=== PATIENT | female | born 1965 | race Caucasian/White ===

== ENCOUNTER → 2019-08-07 | Emergency (ER) | payer SELFPAY | PROVIDERS: Emergency Provider Emergency Medicine; Family Provider Nurse Practitioner; Visit Provider Emergency Medicine | DX: G89.18 Other acute postprocedural pain (principal); M25.531 Pain in right wrist; F17.210 Nicotine dependence, cigarettes, uncomplicated; J44.9 Chronic obstructive pulmonary disease, unspecified | CPT/HCPCS: 73110; 99281 ==

== ENCOUNTER → 2019-08-15 13:33 | Outpatient (BNVA) | payer MEDICAID, SELFPAY | PROVIDERS: Family Provider Nurse Practitioner; PCP Orthopaedic Surgery; Visit Provider Orthopaedic Surgery | DX: Z98.890 Other specified postprocedural states (principal) ==

== ENCOUNTER 2019-08-15 16:26 | Outpatient (CLI) | payer MEDICAID, SELFPAY | END 2019-08-15 16:27 | disposition home or self-care (01) | LOC: SPT 16:26 | PROVIDERS: Family Provider Nurse Practitioner; PCP Orthopaedic Surgery; Visit Provider Orthopaedic Surgery | DX: Z46.89 Encounter for fitting and adjustment of other specified devices (principal); S52.571D Other intraarticular fracture of lower end of right radius, subsequent encounter for closed fracture with routine healing; X58.XXXD Exposure to other specified factors, subsequent encounter | CPT/HCPCS: 73110; L3908 ==

== ENCOUNTER → 2019-10-23 09:27 | Outpatient (BNVA) | payer MEDICAID, SELFPAY | PROVIDERS: Family Provider Nurse Practitioner; PCP Orthopaedic Surgery; Visit Provider Nurse Practitioner | DX: F43.12 Post-traumatic stress disorder, chronic (principal); F33.1 Major depressive disorder, recurrent, moderate; Z63.4 Disappearance and death of family member; F41.1 Generalized anxiety disorder | CPT/HCPCS: 99214 ==

== ENCOUNTER → 2020-01-17 07:39 | Outpatient (BNVA) | payer MEDICAID, SELFPAY | PROVIDERS: Family Provider Nurse Practitioner; PCP Orthopaedic Surgery; Visit Provider Nurse Practitioner | DX: F43.12 Post-traumatic stress disorder, chronic (principal); F33.1 Major depressive disorder, recurrent, moderate; G47.00 Insomnia, unspecified | CPT/HCPCS: 99213 ==

== ENCOUNTER → 2020-04-17 07:52 | Outpatient (BNVA) | payer MEDICAID, SELFPAY | PROVIDERS: Family Provider Nurse Practitioner; PCP Orthopaedic Surgery; Visit Provider Nurse Practitioner | DX: F33.1 Major depressive disorder, recurrent, moderate (principal); F43.12 Post-traumatic stress disorder, chronic | CPT/HCPCS: 99213 ==

== ENCOUNTER → 2020-07-10 08:14 | Outpatient (BNVA) | payer MEDICAID, SELFPAY | PROVIDERS: Family Provider Nurse Practitioner; Visit Provider Nurse Practitioner | DX: F33.1 Major depressive disorder, recurrent, moderate (principal); F43.12 Post-traumatic stress disorder, chronic | CPT/HCPCS: 99213 ==

== ENCOUNTER → 2020-08-13 16:00 | Outpatient (BNVA) | payer MEDICAID, SELFPAY | PROVIDERS: Family Provider Nurse Practitioner; Visit Provider Orthopaedic Surgery | DX: S52.501A Unspecified fracture of the lower end of right radius, initial encounter for closed fracture (principal); Z98.890 Other specified postprocedural states; M25.531 Pain in right wrist; X58.XXXA Exposure to other specified factors, initial encounter | CPT/HCPCS: 73110 ==

== ENCOUNTER → 2020-09-29 14:31 | Outpatient (BNVA) | payer MEDICAID, SELFPAY | PROVIDERS: PCP Nurse Practitioner; Visit Provider Nurse Practitioner | DX: J45.909 Unspecified asthma, uncomplicated (principal); J02.9 Acute pharyngitis, unspecified; R05 Cough; J06.9 Acute upper respiratory infection, unspecified | CPT/HCPCS: 85025; 87071; 87400; 87635; 87880 ==

== ENCOUNTER → 2020-10-08 07:34 | Outpatient (BNVA) | payer MEDICAID, SELFPAY | PROVIDERS: PCP Nurse Practitioner; Visit Provider Nurse Practitioner | DX: F33.1 Major depressive disorder, recurrent, moderate (principal); F43.12 Post-traumatic stress disorder, chronic | CPT/HCPCS: 99214 ==

== ENCOUNTER → 2020-11-05 16:03 | Outpatient (BNVA) | payer MEDICAID, SELFPAY | PROVIDERS: PCP Nurse Practitioner; Visit Provider Specialist | DX: M25.531 Pain in right wrist; T84.84XA Pain due to internal orthopedic prosthetic devices, implants and grafts, initial encounter | CPT/HCPCS: 73110 ==

== ENCOUNTER → 2020-11-19 07:48 | Outpatient (BNVA) | payer MEDICAID, SELFPAY | PROVIDERS: PCP Nurse Practitioner; Visit Provider Nurse Practitioner | DX: F33.1 Major depressive disorder, recurrent, moderate (principal); F43.12 Post-traumatic stress disorder, chronic | CPT/HCPCS: 99214 ==

== ENCOUNTER → 2021-02-12 07:28 | Outpatient (BNVA) | payer MEDICAID, SELFPAY | PROVIDERS: PCP Nurse Practitioner; Visit Provider Nurse Practitioner | DX: F33.1 Major depressive disorder, recurrent, moderate (principal); F43.12 Post-traumatic stress disorder, chronic | CPT/HCPCS: 99214 ==

== ENCOUNTER → 2021-05-18 06:57 | Outpatient (BNVA) | payer MEDICAID, SELFPAY | PROVIDERS: PCP Nurse Practitioner; Visit Provider Nurse Practitioner | DX: F33.1 Major depressive disorder, recurrent, moderate (principal); F43.12 Post-traumatic stress disorder, chronic | CPT/HCPCS: 99214 ==

== ENCOUNTER → 2021-08-12 07:42 | Outpatient (BNVA) | payer MEDICAID, SELFPAY | PROVIDERS: PCP Nurse Practitioner; Visit Provider Nurse Practitioner | DX: F33.1 Major depressive disorder, recurrent, moderate (principal); F43.12 Post-traumatic stress disorder, chronic | CPT/HCPCS: 99214 ==

== ENCOUNTER → 2021-11-06 09:42 | Outpatient (BNVA) | payer MEDICAID, SELFPAY | PROVIDERS: PCP Nurse Practitioner; Visit Provider Nurse Practitioner | DX: F33.1 Major depressive disorder, recurrent, moderate (principal); F43.12 Post-traumatic stress disorder, chronic | CPT/HCPCS: 99214 ==

== ENCOUNTER 2022-06-27 09:52 | Emergency (ER) | payer MEDICAID, SELFPAY ==
[2022-06-27 09:53] VITALS: BP 154/98; PULSE 121; RESP 17; O2SAT 95; BMI 26.6
[2022-06-27 10:08] VITALS: BP 161/106; PULSE 121; RESP 18; O2SAT 95
[2022-06-27 10:16] LABS: Add Urine Microscopic? NO; Charge for UA Resulting for Rev
--- NOTE | 2022-06-27 10:20 | W.ED.SEIZURE ---
HPI - Seizure General: Chief Complaint: Seizure Stated Complaint: SEIZURES Time Seen by Provider: 06/27/22 09:53 History of Present Illness: HPI Narrative: 57-year-old female with a witnessed seizure patient has a suppose it underlying seizure disorder that she takes clonazepam for. Patient takes 1 mg 3 times daily. She has been out of her clonazepam for couple days. Patient's daughter reports that she had a witnessed seizure for 5 minutes. There is no bowel or bladder loss or no tongue biting. EMS reports when they arrived she appeared postictal but has resolved in route. Patient with no reports of recent illnesses or other complaints. Seizure History: Yes Place: Home Associated symptoms: Deny chest pain, chills or fever(s) Review of Systems Const: Denies: fever(s) or chills Eyes: Denies: blurry vision or eye discharge Card: Denies: chest pain or palpitations Resp: Denies: dyspnea or productive cough GI: Denies: abdominal pain, nausea or vomiting : Denies: difficulty voiding or urinary frequency Musc: Denies: neck pain or back pain Skin/Breast: Denies: rash or erythema Neuro: Reports: seizure-like activity Psych: Reports: anxiety [facility] ED PFSH: Medical History (Updated 06/27/22 @ 11:49 by Rojas Granados DO) Asthma Degenerative cervical disc Disappearance and of family member Major depressive disorder, recurrent, moderate Post-traumatic stress disorder, chronic Psychiatric care Surgical History History of tonsillectomy Status post open reduction and internal fixation (ORIF) of fracture open reduction internal fixation a four-part intra-articular fracture comminuted right distal radius fracture with volar plate and screws and percutaneous pins DOS: 07-07-[address] Shook Family History Other Diabetes Hypertension Stroke Denies family history of Dementia Cancer Social History Smoking and tobacco status: current every day smoker cigarettes Second hand smoke exposure: No Smoking risk assessment/counseling performed?: Yes Tobacco counseling given: counseling >3 minutes Alcohol intake: never Desire information about alcohol rehabilitation?: No Counseling given: No Desire information about substance/drug rehabilitation?: No Counseling given: No Adopted: No Caregiver/support person: No Lives independently: Yes Household members: none Housing: House Marital status: / Number of children: 2 service: No Current occupational status: disabled History of recent travel: No Current gender identity: Female Physical Exam Const: COMMON NORMALS: no acute distress, patient oriented x3 and alert HENMT: COMMON NORMALS: normocephalic, hearing grossly normal bilaterally and moist oral mucous membranes HEAD & SCALP: normocephalic Eye: COMMON NORMALS: EOMs intact bilaterally and conjunctivae normal CONJUNCTIVA: Yes conjunctivae normal Resp: COMMON NORMALS: normal respiratory effort, No retractions, No use of accessory muscles and clear to auscultation bilaterally AUSCULTATION: clear to auscultation bilaterally Cardio: COMMON NORMALS: regular rate and regular rhythm RATE: regular rate RHYTHM: regular rhythm GI: COMMON NORMALS: Soft to palpation and non-tender PALPATION: Yes Soft to palpation Extremity: COMMON NORMALS: full ROM and capillary refill normal Neuro: COMMON NORMALS: patient oriented x3, CN's II-XII intact bilaterally, moves all extremities, no focal motor deficits and no sensory deficits noted SENSORIUM/ORIENTATION: Yes alert Psych: COMMON NORMALS: mental status grossly normal, normal affect and speech normal SPEECH: Yes normal speech Skin: COMMON NORMALS: no rashes or lesions noted and turgor normal GENERAL SKIN EXAM: no rashes or lesions noted and turgor normal Course Vital Signs: Vital signs: Vital Signs Pulse Rate 99 06/27/22 12:02 Respiratory Rate 18 06/27/22 10:08 Blood Pressure 144/96 06/27/22 12:02 Pulse Oximetry 97 06/27/22 12:02 Oxygen Delivery Me thod 06/27/22 11:49 MDM - Seizure MDM Narrative Medical decision making narrative: Patient's symptoms are consistent with likely benzo withdrawal seizure. Patient to be given a Klonopin here in the ER prior to discharge. Recommend she fill her Klonopin prescription tomorrow and follows up with her primary care provider and behavioral health provider as needed. Patient stable and discharged home Lab Data 06/27/22 10:51 06/27/22 10:51 Labs: Laboratory Results WBC 11.1 10^3/uL (4.0-10.0) H 06/27/22 10:51 Corrected WBC Cancelled 06/27/22 10:15 RBC 4.32 10^6/uL (4.1-5.3) 06/27/22 10:51 Hgb 14.8 g/dL (11.5-15.3) 06/27/22 10:51 Hct 43.8 % (37.0-47.0) 06/27/22 10:51 MCV 101.4 fl (81-99) H 06/27/22 10:51 MCH 34.3 pg (28.0-34.0) H 06/27/22 10:51 MCHC 33.8 g/dL (30.0-36.0) 06/27/22 10:51 RDW 13.1 % (12.1-15.1) 06/27/22 10:51 Plt Count 334 10^3/cmm (130-400) 06/27/22 10:51 MPV 9.9 fL (7.4-10.4) 06/27/22 10:51 Gran % Cancelled 06/27/22 10:15 Neut % (Auto) 61.3 % 06/27/22 10:51 Lymph % (Auto) 30.0 % 06/27/22 10:51 [place] % (Auto) 5.0 % 06/27/22 10:51 Eos % (Auto) 2.6 % 06/27/22 10:51 Baso % (Auto) 0.6 % 06/27/22 10:51 Neut # (Auto) 6.81 10^3/uL (1.8-7.7) 06/27/22 10:51 Lymph # (Auto) 3.3 10^3/uL (0.8-4.8) 06/27/22 10:51 [place] # (Auto) 0.6 10^3/uL (0.2-0.9) 06/27/22 10:51 Eos # (Auto) 0.3 10^3/uL (0.0-0.8) 06/27/22 10:51 Baso # (Auto) 0.1 10^3/uL (0.0-0.1) 06/27/22 10:51 Absolute Gran (auto) Cancelled 06/27/22 10:15 Nucleated RBC % (auto) 0 % 06/27/22 10:51 Nucleated RBCs # 0.0 /100WBC 06/27/22 10:51 Sodium 138 mmol/L (136-145) 06/27/22 10:51 Potassium 3.7 mmol/L (3.5-5.1) 06/27/22 10:51 Chloride 102 mmol/L (98-107) 06/27/22 10:51 Carbon Dioxide 22 mmol/L (22-29) 06/27/22 10:51 Anion Gap 17.7 (5-19) 06/27/22 10:51 BUN 13 mg/dL (6-20) 06/27/22 10:51 Creatinine 0.6 mg/dL (0.5-0.9) 06/27/22 10:51 GFR Calculation 103.0 mL/min (90-130) 06/27/22 10:51 Glucose 113 mg/dL (65-115) 06/27/22 10:51 Calculated Osmolality 287 mOsm/kg (285-295) 06/27/22 10:51 Calcium 9.2 mg/dL (8.5-10.5) 06/27/22 10:51 Magnesium 2.2 mg/dL (1.7-2.3) 06/27/22 10:51 Total Bilirubin 0.2 mg/dL (0.15-1.2) 06/27/22 10:51 AST 13 U/L (0-32) 06/27/22 10:51 ALT 11 U/L (0-33) 06/27/22 10:51 Alkaline Phosphatase 86 U/L (35-105) 06/27/22 10:51 Total Protein 7.3 g/dL (6.6-8.7) 06/27/22 10:51 Albumin 4.5 g/dL (3.5-5.2) 06/27/22 10:51 Globulin 2.8 g/dL (1.3-4.6) 06/27/22 10:51 Urine Color Yellow (Yellow) 06/27/22 10:05 Urine Appearance Clear (CLEAR) 06/27/22 10:05 Urine pH 5 (5-7) 06/27/22 10:05 Ur Specific [place] 1.020 (1.005-1.030) 06/27/22 10:05 Urine Protein Neg (Negative) 06/27/22 10:05 Urine Glucose (UA) Norm (Normal) 06/27/22 10:05 Urine Ketones Negative (Negative) 06/27/22 10:05 Urine Blood Neg (Negative) 06/27/22 10:05 Urine Nitrate Negative (Negative) 06/27/22 10:05 Urine Bilirubin Neg (Negative) 06/27/22 10:05 Urine Urobilinogen Norm mg/dL (Negative) 06/27/22 10:05 Ur Leukocyte Esterase Negative (Negative) 06/27/22 10:05 Urine Opiates Screen Negative ng/mL (Negative) 06/27/22 10:05 Ur Barbiturates Screen Negative ng/mL (Negative) 06/27/22 10:05 Ur Phencyclidine Scrn Negative ng/mL (Negative) 06/27/22 10:05 Ur Amphetamines Screen Negative ng/mL (Negative) 06/27/22 10:05 U Benzodiazepines Scrn Positive ng/mL (Negative) H 06/27/22 10:05 Urine Cocaine Screen Negative ng/mL (Negative) 06/27/22 10:05 U Marijuana (THC) Screen Negative ng/mL (Negative) 06/27/22 10:05 Ethyl Alcohol < 10 mg/dL (0-10) 06/27/22 10:51 Discharge Plan Discharge Patient Disposition: Home Clinical Impression: Benzodiazepine withdrawal Condition: Stable Prescriptions: No Action Dulera 100-5 mcg/actuation HFA aerosol inhaler 2 puff INHALATION BID Qty: 13 5RF azithromycin 250 mg tablet See Rx Instructions PO .COMPLEX Qty: 6 0RF Rx Instructions: take 500 mg today (day 1), then 250 mg for 4 days (days 2-5) PO erythromycin 5 mg/gram (0.5 %) ointment 0.5 inch ophthalmic (eye) QID 5 Days Qty: 3.5 0RF prednisone 20 mg tablet 20 mg PO DAILY 5 Days Qty: 5 0RF clonazepam [Klonopin] 1 mg tablet 1 mg PO TID PRN (Reason: anxiety) Qty: 90 1RF aripiprazole [Abilify] 2 mg tablet 2 mg PO DAILY Qty: 30 1RF sertraline [Zoloft] 100 mg tablet 200 mg PO Q24H Qty: 60 1RF Discharge Orders: Discharge ED (Routine); Ordered 06/27/22 Ordered By: Rojas Granados Referrals: Jacob Briggs, [employer] CONS[facility]ANT[facility] [Primary Care Provider] - Discharge Diet: Usual diet Discharge Activity: Resume usual activity Patient Instructions: Opioid Safety, Pain Management, Seizures Activity Restrictions/Additional Instructions: Please fill your Klonopin prescription tomorrow. Follow-up with your primary care provider as needed if symptoms continue Coding Level of Care Code ED [place] for Chg Fwd Exam Comprehensive
[2022-06-27 10:24] LABS: Bilirubin Urine Neg (Negative); Blood Urine Neg (Negative); Glucose Urine UA Norm (Normal); Ketones Urine Negative (Negative); Leukocyte Esterase Urine Negative (Negative); Nitrate Urine Negative (Negative); Protein Urine Neg (Negative); Urine Appearance Clear (CLEAR); Urine Color Yellow (Yellow); Urobilinogen Urine Norm (Negative); pH Urine 5 (5-7)
[2022-06-27 10:32] LABS: Amphetamines Screen Urine Negative (Negative); Barbiturates Screen Urine Negative (Negative); Benzodiazepines Screen Urine Positive (Negative); Cocaine Screen Urine Negative (Negative); Opiate Screen Urine Negative (Negative); PCP Screen Urine Negative (Negative); THC Screen Urine Negative (Negative)
[2022-06-27 10:56] LABS: Basophils # 0.1 10^3/uL (0.0-0.1); Basophils % 0.6 %; Eosinophils # 0.3 10^3/uL (0.0-0.8); Eosinophils % 2.6 %; Hematocrit 43.8 % (37.0-47.0); Hemoglobin 14.8 g/dL (11.5-15.3); Lymphocytes # 3.3 10^3/uL (0.8-4.8); Mean Corpuscular HGB Conc 33.8 g/dL (30.0-36.0); Mean Corpuscular Hemoglobin 34.3 pg (28.0-34.0); Mean Corpuscular Volume 101.4 fl (81-99); Mean Platelet Volume 9.9 fL (7.4-10.4); Monocytes # 0.6 10^3/uL (0.2-0.9); Neutrophils # 6.81 10^3/uL (1.8-7.7); Neutrophils % 61.3 %; Nucleated Red Blood Cells % 0 %; Platelet Count 334 10^3/cmm (130-400); Red Blood Count 4.32 10^6/uL (4.1-5.3); Red Cell Distribution Width 13.1 % (12.1-15.1); White Blood Count 11.1 10^3/uL (4.0-10.0)
[2022-06-27 11:14] LABS: Alanine Aminotransferase 11 U/L (0-33); Albumin Level 4.5 g/dL (3.5-5.2); Alkaline Phosphatase 86 U/L (35-105); Anion Gap 17.7 (5-19); Aspartate Amino Transferase 13 U/L (0-32); Blood Urea Nitrogen 13 mg/dL (6-20); Calcium 9.2 mg/dL (8.5-10.5); Carbon Dioxide 22 mmol/L (22-29); Chloride 102 mmol/L (98-107); Globulin 2.8 g/dL (1.3-4.6); Glucose 113 mg/dL (65-115); Magnesium 2.2 mg/dL (1.7-2.3); Osmolality Calculated 287 mOsm/kg (285-295); Potassium 3.7 mmol/L (3.5-5.1); Sodium 138 mmol/L (136-145); Total Bilirubin 0.2 mg/dL (0.15-1.2); Total Protein 7.3 g/dL (6.6-8.7)
[2022-06-27 11:35] LABS: Alcohol Level < 10 mg/dL (0-10)
[2022-06-27] MEDS: CLONazepam 1 mg Tablet PO (11:48)
[2022-06-27 11:49] VITALS: BP 144/96; PULSE 97; O2SAT 97
[2022-06-27 12:02] VITALS: BP 144/96; PULSE 99; O2SAT 97
== END 2022-06-27 12:00 | disposition home or self-care (01) ==
PROVIDERS: Emergency Provider Student in an Organized Health Care Education/Training Program; PCP Nurse Practitioner
DX: F13.239 Sedative, hypnotic or anxiolytic dependence with withdrawal, unspecified (principal); F17.210 Nicotine dependence, cigarettes, uncomplicated
CPT/HCPCS: 36415; 80053; 80306; 80307; 81003; 83735; 85025; 99283

== ENCOUNTER 2022-10-14 18:33 | Emergency (ER) | payer MEDICAID, SELFPAY ==
[2022-10-14 18:34] VITALS: BP 137/93; PULSE 118; RESP 19; O2SAT 96; BMI 28.1
--- NOTE | 2022-10-14 18:44 | CTR_ITS ---
PROCEDURE INFORMATION: Exam: CT Cervical Spine Without Contrast Exam date and time: 10/14/2022 7:41 PM Age: 57 years old Clinical indication: Injury or trauma; Fall; Blunt trauma TECHNIQUE: Imaging protocol: Computed tomography of the cervical spine without contrast. Radiation optimization: All CT scans at this facility use at least one of these dose optimization techniques: automated exposure control; mA and/or kV adjustment per patient size (includes targeted exams where dose is matched to clinical indication); or iterative reconstruction. REPORTING DATA: Count of CT and Cardiac NM exams in prior 12 months: This patient has received [address] and 0 known cardiac nuclear medicine studies in the 12 months prior to the current study. COMPARISON: No relevant prior studies available. RADIATION DOSE METRICS: Total DLP (mGy-cm): 213.1 FINDINGS: Bones/joints: No acute fracture. Grade 1 anterolisthesis of C5-C6. No severe spinal canal stenosis. Lungs: Lung apices are normal. Soft tissues: Unremarkable. CT/CT cervical spin wo con* [id number] IMPRESSION: No acute findings.
--- NOTE | 2022-10-14 18:44 | CTR_ITS ---
PROCEDURE INFORMATION: Exam: CT Head Without Contrast Exam date and time: 10/14/2022 7:41 PM Age: 57 years old Clinical indication: Injury or trauma; Fall; Blunt trauma (contusions or hematomas); Additional info: Fall seizure TECHNIQUE: Imaging protocol: Computed tomography of the head without contrast. Radiation optimization: All CT scans at this facility use at least one of these dose optimization techniques: automated exposure control; mA and/or kV adjustment per patient size (includes targeted exams where dose is matched to clinical indication); or iterative reconstruction. REPORTING DATA: Count of CT and Cardiac NM exams in prior 12 months: This patient has received [address] and 0 known cardiac nuclear medicine studies in the 12 months prior to the current study. COMPARISON: No relevant prior studies available. RADIATION DOSE METRICS: Total DLP (mGy-cm): 1154.08 FINDINGS: Brain: Normal. No hemorrhage. Unremarkable white matter. No mass effect. Cerebral ventricles: No ventriculomegaly. Paranasal sinuses: Visualized sinuses are unremarkable. No fluid levels. Mastoid air cells: Visualized mastoid air cells are well aerated. Bones/joints: Unremarkable. No acute fracture. Soft tissues: Unremarkable. CT/CT head wo con* [id number] IMPRESSION: No acute intracranial abnormality.
--- NOTE | 2022-10-14 18:49 | ED_ITS ---
HPI - Seizure General: Chief Complaint: Seizure Stated Complaint: SEIZURES Time Seen by Provider: 10/14/22 18:41 Source: patient and EMS Mode of arrival: EMS Limitations: no limitations History of Present Illness: HPI Narrative: 57-year-old female who states she is on Klonopin chronically states she had ran out 2 days ago because she did not get a refill she states she has had seizures before and she ran out she had a seizure roughly an hour ago states she did hit her head has mild head and neck pain she is now awake and alert at her baseline denies any fever or vomiting. Seizure History: Yes Associated symptoms: Deny chest pain, chills or fever(s) Review of Systems Const: Denies: fever(s), chills, body aches or change in appetite Eyes: Denies: blurry vision or eye discomfort ENMT: Denies: throat pain or dental pain Card: Denies: chest pain Resp: Denies: dyspnea GI: Denies: abdominal pain, nausea, vomiting or diarrhea : Denies: dysuria Musc: Reports: neck pain Skin/Breast: Denies: rash Neuro: Reports: seizure-like activity Psych: Denies: depression [place]/Lymph: Denies: easy bruising All/Imm: Denies: urticaria PFSH ED PFSH: Medical History Asthma Degenerative cervical disc Disappearance and of family member Major depressive disorder, recurrent, moderate Post-traumatic stress disorder, chronic Psychiatric care Tobacco use disorder Surgical History History of tonsillectomy Status post open reduction and internal fixation (ORIF) of fracture open reduction internal fixation a four-part intra-articular fracture comminuted right distal radius fracture with volar plate and screws and percutaneous pins DOS: 07-07-[address] Shook Family History Other Diabetes Hypertension Stroke Denies family history of Dementia Cancer Social History Smoking and tobacco status: current every day smoker cigarettes Second hand smoke exposure: No Smoking risk assessment/counseling performed?: Yes Tobacco counseling given: counseling >3 minutes Alcohol intake: never Desire information about alcohol rehabilitation?: No Counseling given: No Desire information about substance/drug rehabilitation?: No Counseling given: No Adopted: No Caregiver/support person: No Lives independently: Yes Household members: none Housing: House Marital status: / Number of children: 2 service: No Current occupational status: disabled Current gender identity: Female Physical Exam Const: COMMON NORMALS: no acute distress, patient oriented x3 and healthy appearing HENMT: COMMON NORMALS: normocephalic and atraumatic HEAD & SCALP: normocephalic and atraumatic Eye: COMMON NORMALS: Equal, round and reactive pupils present and EOMs intact bilaterally PUPIL: Yes Equal, round and reactive pupils present Neck/C-Spine: COMMON NORMALS: full ROM and supple Chest: COMMONS NORMALS: normal inspection of the chest and normal palpation of entire chest wall Resp: COMMON NORMALS: normal respiratory effort, No retractions, No use of accessory muscles and clear to auscultation bilaterally AUSCULTATION: clear to auscultation bilaterally Cardio: COMMON NORMALS: regular rate, regular rhythm and No murmurs present (Cardio) RATE: regular rate RHYTHM: regular rhythm GI: COMMON NORMALS: Normal to inspection, nondistended, normoactive bowel sounds present, Soft to palpation, non-tender and no masses PALPATION: Yes Soft to palpation Extremity: COMMON NORMALS: normal to inspection and full ROM Neuro: COMMON NORMALS: patient oriented x3, moves all extremities and no focal motor deficits Psych: COMMON NORMALS: mental status grossly normal, Normal thought process present and cooperative THOUGHT PROCESS: Normal thought process present Skin: COMMON NORMALS: no rashes or lesions noted and no wounds GENERAL SKIN EXAM: no rashes or lesions noted Course Vital Signs: Vital signs: Vital Signs Pulse Rate 105 H 10/14/22 20:04 Respiratory Rate 16 10/14/22 20:04 Blood Pressure 136/80 10/14/22 20:04 Pulse Oximetry 98 10/14/22 20:04 Oxygen Delivery Me thod 10/14/22 20:04 MDM - Seizure MDM Narrative Medical decision making narrative: Patient presents here with a seizure likely withdrawal seizure from her Klonopin her heart rate now is 90 she feels improved I did give her 1 dose I will give her 4-day course of her Klonopin but informed her she needs to call her PCP for her refill she is stable for discharge she is to follow-up with PCP and return if worsening Lab Data 10/14/22 19:04 10/14/22 19:04 Labs: Radiology Impressions Cervical Spine CT 10/14/22 18:44 IMPRESSION: No acute findings. Head CT 10/14/22 18:44 IMPRESSION: No acute intracranial abnormality. Laboratory Results WBC 9.2 10^3/uL (4.0-10.0) 10/14/22 19:04 RBC 4.69 10^6/uL (4.1-5.3) 10/14/22 19:04 Hgb 15.5 g/dL (11.5-15.3) H 10/14/22 19:04 Hct 45.2 % (37.0-47.0) 10/14/22 19:04 MCV 96.4 fl (81-99) 10/14/22 19:04 MCH 33.0 pg (28.0-34.0) 10/14/22 19:04 MCHC 34.3 g/dL (30.0-36.0) 10/14/22 19:04 RDW 12.3 % (12.1-15.1) 10/14/22 19:04 Plt Count 295 10^3/cmm (130-400) 10/14/22 19:04 MPV 10.2 fL (7.4-10.4) 10/14/22 19:04 Neut % (Auto) 56.7 % 10/14/22 19:04 Lymph % (Auto) 33.4 % 10/14/22 19:04 [place] % (Auto) 6.0 % 10/14/22 19:04 Eos % (Auto) 2.6 % 10/14/22 19:04 Baso % (Auto) 0.5 % 10/14/22 19:04 Neut # (Auto) 5.22 10^3/uL (1.8-7.7) 10/14/22 19:04 Lymph # (Auto) 3.1 10^3/uL (0.8-4.8) 10/14/22 19:04 [place] # (Auto) 0.6 10^3/uL (0.2-0.9) 10/14/22 19:04 Eos # (Auto) 0.2 10^3/uL (0.0-0.8) 10/14/22 19:04 Baso # (Auto) 0.1 10^3/uL (0.0-0.1) 10/14/22 19:04 Nucleated RBC % (auto) 0 % 10/14/22 19:04 Nucleated RBCs # 0.0 /100WBC 10/14/22 19:04 Sodium 128 mmol/L (136-145) L 10/14/22 19:04 Potassium 3.5 mmol/L (3.5-5.1) 10/14/22 19:04 Chloride 89 mmol/L (98-107) L 10/14/22 19:04 Carbon Dioxide 24 mmol/L (22-29) 10/14/22 19:04 Anion Gap 18.5 (5-19) 10/14/22 19:04 BUN 5 mg/dL (6-20) L 10/14/22 19:04 Creatinine 0.6 mg/dL (0.5-0.9) 10/14/22 19:04 GFR Calculation 103.0 mL/min (90-130) 10/14/22 19:04 Glucose 136 mg/dL (65-115) H 10/14/22 19:04 Calculated Osmolality 265 mOsm/kg (285-295) L 10/14/22 19:04 Calcium 9.3 mg/dL (8.5-10.5) 10/14/22 19:04 Total Bilirubin 0.2 mg/dL (0.15-1.2) 10/14/22 19:04 AST 15 U/L (0-32) 10/14/22 19:04 ALT 12 U/L (0-33) 10/14/22 19:04 Alkaline Phosphatase 91 U/L (35-105) 10/14/22 19:04 Total Protein 7.6 g/dL (6.6-8.7) 10/14/22 19:04 Albumin 4.8 g/dL (3.5-5.2) 10/14/22 19:04 Globulin 2.8 g/dL (1.3-4.6) 10/14/22 19:04 Discharge Plan Discharge Patient Disposition: Home Clinical Impression: Generalized seizure Condition: Stable Prescriptions: New clonazepam [Klonopin] 1 mg tablet 1 mg PO TID Qty: 12 0RF No Action Dulera 100-5 mcg/actuation HFA aerosol inhaler 2 puff INHALATION BID Qty: 13 5RF sertraline [Zoloft] 100 mg tablet 200 mg PO Q24H Qty: 60 1RF clonazepam [Klonopin] 1 mg tablet 1 mg PO TID PRN (Reason: anxiety) Qty: 90 1RF aripiprazole [Abilify] 2 mg tablet 2 mg PO DAILY Qty: 30 1RF Discharge Orders: Discharge ED (Routine); Ordered 10/14/22 Ordered By: Marbella Roblero Referrals: Jacob Briggs, [employer] DIRECTOR-C [Primary Care Provider] - 1-3 days Discharge Diet: Advance as tolerated Discharge Activity: Resume usual activity Patient Instructions: Seizures Coding Level of Care Code ED Quality Process Auditor for Huan Roa
[2022-10-14] MEDS: CLONazepam 1 mg Tablet PO (18:57)
[2022-10-14 18:59] VITALS: BP 136/88; PULSE 110; RESP 16; O2SAT 94
[2022-10-14 19:27] LABS: Basophils # 0.1 10^3/uL (0.0-0.1); Basophils % 0.5 %; Eosinophils # 0.2 10^3/uL (0.0-0.8); Eosinophils % 2.6 %; Hematocrit 45.2 % (37.0-47.0); Hemoglobin 15.5 g/dL (11.5-15.3); Lymphocytes # 3.1 10^3/uL (0.8-4.8); Lymphocytes % 33.4 %; Mean Corpuscular HGB Conc 34.3 g/dL (30.0-36.0); Mean Corpuscular Volume 96.4 fl (81-99); Mean Platelet Volume 10.2 fL (7.4-10.4); Monocytes # 0.6 10^3/uL (0.2-0.9); Neutrophils # 5.22 10^3/uL (1.8-7.7); Neutrophils % 56.7 %; Nucleated Red Blood Cells % 0 %; Platelet Count 295 10^3/cmm (130-400); Red Blood Count 4.69 10^6/uL (4.1-5.3); Red Cell Distribution Width 12.3 % (12.1-15.1); White Blood Count 9.2 10^3/uL (4.0-10.0)
[2022-10-14 19:50] LABS: Alanine Aminotransferase 12 U/L (0-33); Albumin Level 4.8 g/dL (3.5-5.2); Alkaline Phosphatase 91 U/L (35-105); Anion Gap 18.5 (5-19); Aspartate Amino Transferase 15 U/L (0-32); Blood Urea Nitrogen 5 mg/dL (6-20); Calcium 9.3 mg/dL (8.5-10.5); Carbon Dioxide 24 mmol/L (22-29); Chloride 89 mmol/L (98-107); Globulin 2.8 g/dL (1.3-4.6); Glucose 136 mg/dL (65-115); Osmolality Calculated 265 mOsm/kg (285-295); Potassium 3.5 mmol/L (3.5-5.1); Sodium 128 mmol/L (136-145); Total Bilirubin 0.2 mg/dL (0.15-1.2); Total Protein 7.6 g/dL (6.6-8.7)
[2022-10-14 20:04] VITALS: BP 136/80; PULSE 105; RESP 16; O2SAT 98
== END 2022-10-14 20:55 | disposition home or self-care (01) ==
PROVIDERS: Emergency Provider Emergency Medicine; PCP Nurse Practitioner
DX: G40.89 Other seizures (principal); F17.210 Nicotine dependence, cigarettes, uncomplicated
CPT/HCPCS: 36415; 70450; 72125; 80053; 85025; 99284

== ENCOUNTER → 2022-11-29 09:02 | Outpatient (BNVA) | payer MEDICAID, SELFPAY | PROVIDERS: PCP Nurse Practitioner; Visit Provider Nurse Practitioner | DX: Z79.899 Other long term (current) drug therapy (principal) | CPT/HCPCS: 80061; 80306; 83036 ==

== ENCOUNTER 2023-05-07 06:18 | Emergency (ER) | payer MEDICAID, SELFPAY ==
[2023-05-07 06:18] VITALS: BMI 24.9
--- NOTE | 2023-05-07 06:23 | ED_ITS ---
HPI - Seizure General: Chief Complaint: Seizure Stated Complaint: post seizure Time Seen by Provider: 05/07/23 06:20 Source: patient Mode of arrival: ambulatory History of Present Illness: HPI Narrative: 57-year-old female presents after a seizure via EMS. Patient was at home in bed her was with her he awoke and reports she was having tonic-clonic seizures. He has a little difficult time putting a timeframe to his far as how long she was seizing but he can relate that it was rhythmic movements of both arms and legs. She has had seizures in the past she was in the ER in October of this year for a seizure. States the only seizure medicine she has ever been on is clonazepam. There is 1 previous visit for withdraw from benzodiazepines precipitating his seizure she denies being on any other antiseizure medication at seizure neurologist in the past. She has been known to have seizures for some time. MD complaint: seizure Onset (ago): minute(s) Description of Episode: loss of consciousness and tonic-clonic movement Witnessed: Yes - by Bystander Seizure History: Yes Place: Home Possible Precipitating Event: none Associated symptoms: Reports malaise; Deny chest pain, chills, confusion, cough, diaphoresis, fever(s), anorexia, rash, short of breath, syncope or weakness Treatments prior to arrival: none Review of Systems Const: Reports: fatigue and malaise; Denies: fever(s), chills or diaphoresis ENMT: Denies: throat pain, ear or mastoid pain, nasal discharge or nasal congestion Card: Denies: chest pain, palpitations, irregular heart rhythm or syncope Resp: Denies: dyspnea, productive cough or non-productive cough GI: Denies: abdominal pain, nausea, vomiting, hematemesis, coffee ground emesis, diarrhea, constipation, bloating, hematochezia or melena : Denies: flank pain, difficulty voiding, dysuria, urinary frequency or urinary urgency Musc: Denies: neck pain or back pain Skin/Breast: Denies: rash or pruritus Neuro: Denies: confusion PFSH ED PFSH: Medical History (Updated 05/07/23 @ 07:29 by Caio Decker DO) Asthma Degenerative cervical disc Disappearance and of family member Generalized seizure Major depressive disorder, recurrent, moderate Post-traumatic stress disorder, chronic Psychiatric care Tobacco use disorder Surgical History History of tonsillectomy Status post open reduction and internal fixation (ORIF) of fracture open reduction internal fixation a four-part intra-articular fracture comminuted right distal radius fracture with volar plate and screws and pe rcutaneous pins DOS: 07-07-[address] Shook Family History Other Diabetes Hypertension Stroke Denies family history of Dementia Cancer Social History Smoking and tobacco status: current every day smoker cigarettes Second hand smoke exposure: No Smoking risk assessment/counseling performed?: Yes Tobacco counseling given: counseling >3 minutes Alcohol intake: never Desire information about alcohol rehabilitation?: No Counseling given: No Substance/Drug Use: unknown Desire information about substance/drug rehabilitation?: No Counseling given: No Adopted: No Caregiver/support person: No Lives independently: Yes Household members: none Housing: House Marital status: / Number of children: 2 service: No Current occupational status: disabled Do you think of yourself as: Straight/Heterosexual Current gender identity: Female Physical Exam Const: GENERAL APPEARANCE: cooperative and comfortable ORIENTATI ON/CONSCIOUSNESS: Yes awake, Yes oriented to person, Yes oriented to place and Yes oriented to time HENMT: COMMON NORMALS: normocephalic, atraumatic and hearing grossly normal bilaterally HEAD & SCALP: normocephalic and atraumatic Resp: COMMON NORMALS: normal respiratory effort, No retractions, No use of accessory muscles and clear to auscultation bilaterally AUSCULTATION: clear to auscultation bilaterally Cardio: COMMON NORMALS: regular rate, regular rhythm and No murmurs present (Cardio) RATE: regular rate RHYTHM: regular rhythm GI: COMMON NORMALS: Soft to palpation and No hepatosplenomegaly present AUSCULTATION: Yes normoactive bowel sounds PALPATION: Yes Soft to palpation, No Tenderness to palpation present (GI), No Guarding due to palpation present (GI) and Yes No hepatosplenomegaly present Extremity: COMMON NORMALS: normal to inspection, capillary refill normal, no clubbing, cyanosis or edema, no calf tenderness and no pedal edema Neuro: SENSORIUM/ORIENTATION: Yes oriented to person, Yes oriented to place and Yes oriented to time Skin: COMMON NORMALS: no rashes or lesions noted GENERAL SKIN EXAM: no rashes or lesions noted Course Vital Signs: Vital signs: Vital Signs Temperature 98.7 F 05/07/23 07:36 Pulse Rate 111 H 05/07/23 07:36 Respiratory Rate 16 05/07/23 07:36 Blood Pressure 109/63 05/07/23 07:36 Pulse Oximetry 96 05/07/23 07:36 MDM - Seizure MDM Narrative Medical decision making narrative: Stable. We will discharge patient home with she was given Keppra loading dose here started on 500 twice daily set up outpatient sleep deprived EEG and follow- up with neurology return if has recurrent seizures. Medical Records Attestation: I reviewed the patient's medical records. Lab Data Attestation: I reviewed the patient's lab results. 05/07/23 06:30 05/07/23 06:30 Labs: Laboratory Results WBC 14.10 10^3/uL (3.29-11.43) H 05/07/23 06:30 RBC 4.57 10^6/uL (3.85-5.65) 05/07/23 06:30 Hgb 15.50 g/dL (11.27-16.99) 05/07/23 06:30 Hct 44.9 % (36-47) 05/07/23 06:30 MCV 98.2 fl (85-98) H 05/07/23 06:30 MCH 33.9 pg (27-33) H 05/07/23 06:30 MCHC 34.5 g/dL (30-55) 05/07/23 06:30 RDW 12.4 % (12.1-15.1) 05/07/23 06:30 Plt Count 287 10^3/cmm (157-399) 05/07/23 06:30 MPV 10.2 fL (7.4-10.4) 05/07/23 06:30 Neut % (Auto) 73.3 % 05/07/23 06:30 Lymph % (Auto) 20.1 % 05/07/23 06:30 Thomas % (Auto) 4.3 % 05/07/23 06:30 Eos % (Auto) 1.3 % 05/07/23 06:30 Baso % (Auto) 0.6 % 05/07/23 06:30 Neut # (Auto) 10.34 10^3/uL (1.8-7.7) H 05/07/23 06:30 Lymph # (Auto) 2.8 10^3/uL (0.8-4.8) 05/07/23 06:30 Thomas # (Auto) 0.6 10^3/uL (0.2-0.9) 05/07/23 06:30 Eos # (Auto) 0.2 10^3/uL (0.0-0.8) 05/07/23 06:30 Baso # (Auto) 0.1 10^3/uL (0.0-0.1) 05/07/23 06:30 Nucleated RBC % (auto) 0 % 05/07/23 06:30 Nucleated RBCs # 0.0 /100WBC 05/07/23 06:30 Sodium 138 mmol/L (136-145) 05/07/23 06:30 Potassium 3.2 mmol/L (3.5-5.1) L 05/07/23 06:30 Chloride 100 mmol/L (98-107) 05/07/23 06:30 Carbon Dioxide 24 mmol/L (22-29) 05/07/23 06:30 Anion Gap 17.2 (5-19) 05/07/23 06:30 BUN 6 mg/dL (6-20) 05/07/23 06:30 Creatinine 0.6 mg/dL (0.5-0.9) 05/07/23 06:30 GFR Calculation 103.0 mL/min (90-130) 05/07/23 06:30 Glucose 165 mg/dL (65-115) H 05/07/23 06:30 Calculated Osmolality 287 mOsm/kg (285-295) 05/07/23 06:30 Calcium 9.3 mg/dL (8.5-10.5) 05/07/23 06:30 Magnesium 2.0 mg/dL (1.7-2.3) 05/07/23 06:30 Total Bilirubin 0.2 mg/dL (0.15-1.2) 05/07/23 06:30 AST 13 U/L (0-32) 05/07/23 06:30 ALT 11 U/L (0-33) 05/07/23 06:30 Alkaline Phosphatase 98 U/L (35-105) 05/07/23 06:30 Total Protein 7.5 g/dL (6.6-8.7) 05/07/23 06:30 Albumin 4.8 g/dL (3.5-5.2) 05/07/23 06:30 Globulin 2.7 g/dL (1.3-4.6) 05/07/23 06:30 No radiology studies performed this visit Discharge Plan Discharge Patient Disposition: Home Clinical Impression: Generalized seizure Condition: Stable Prescriptions: New Keppra 500 mg tablet 500 mg PO BID Qty: 60 0RF No Action Dulera 100-5 mcg/actuation HFA aerosol inhaler 2 puff INHALATION BID Qty: 13 5RF clonazepam 1 mg tablet 1 mg PO TID Qty: 90 1RF aripiprazole 2 mg tablet See Rx Instructions .ROUTE .COMPLEX Qty: 30 2RF Dose Instruction: TAKE ONE TABLET BY MOUTH EVERY DAY Rx Instructions: TAKE ONE TABLET BY MOUTH EVERY DAY sertraline 100 mg tablet See Rx Instructions .ROUTE .COMPLEX Qty: 60 2RF Dose Instruction: TAKE TWO TABLETS BY MOUTH EVERY 24 HOURS Rx Instructions: TAKE TWO TABLETS BY MOUTH EVERY 24 HOURS Discharge Orders: Discharge ED (Routine); Ordered 05/07/23 Ordered By: Caio Decker Referrals: Jacob Briggs, [facility] [Nurse Practitioner] - Discharge Diet: Usual diet Discharge Activity: Increase activity as tolerated Patient Instructions: Recurrent Seizures in Adults (ED), Opioid Safety, Pain Management Activity Restrictions/Additional Instructions: Case management will make arrangements for follow-up outpatient EEG and neurology. Coding Level of Care Code ED [employer] Explos[employer] Handler for Huan Roa
[2023-05-07 06:24] VITALS: BP 155/94; PULSE 111; RESP 16; TEMP 37.1; O2SAT 96
[2023-05-07 06:36] LABS: Basophils # 0.1 10^3/uL (0.0-0.1); Basophils % 0.6 %; Eosinophils # 0.2 10^3/uL (0.0-0.8); Eosinophils % 1.3 %; Hematocrit 44.9 % (36-47); Lymphocytes # 2.8 10^3/uL (0.8-4.8); Lymphocytes % 20.1 %; Mean Corpuscular HGB Conc 34.5 g/dL (30-55); Mean Corpuscular Hemoglobin 33.9 pg (27-33); Mean Corpuscular Volume 98.2 fl (85-98); Mean Platelet Volume 10.2 fL (7.4-10.4); Monocytes # 0.6 10^3/uL (0.2-0.9); Monocytes % 4.3 %; Neutrophils # 10.34 10^3/uL (1.8-7.7); Neutrophils % 73.3 %; Nucleated Red Blood Cells % 0 %; Platelet Count 287 10^3/cmm (157-399); Red Blood Count 4.57 10^6/uL (3.85-5.65); Red Cell Distribution Width 12.4 % (12.1-15.1)
[2023-05-07 07:01] LABS: Alanine Aminotransferase 11 U/L (0-33); Albumin Level 4.8 g/dL (3.5-5.2); Alkaline Phosphatase 98 U/L (35-105); Anion Gap 17.2 (5-19); Aspartate Amino Transferase 13 U/L (0-32); Blood Urea Nitrogen 6 mg/dL (6-20); Calcium 9.3 mg/dL (8.5-10.5); Carbon Dioxide 24 mmol/L (22-29); Chloride 100 mmol/L (98-107); Globulin 2.7 g/dL (1.3-4.6); Glucose 165 mg/dL (65-115); Osmolality Calculated 287 mOsm/kg (285-295); Potassium 3.2 mmol/L (3.5-5.1); Sodium 138 mmol/L (136-145); Total Bilirubin 0.2 mg/dL (0.15-1.2); Total Protein 7.5 g/dL (6.6-8.7)
[2023-05-07 07:36] VITALS: BP 109/63; PULSE 111; RESP 16; TEMP 37.1; O2SAT 96
== END 2023-05-07 07:38 | disposition home or self-care (01) ==
PROVIDERS: Emergency Provider Family Medicine
DX: G40.409 Other generalized epilepsy and epileptic syndromes, not intractable, without status epilepticus (principal); F17.210 Nicotine dependence, cigarettes, uncomplicated
CPT/HCPCS: 80053; 83735; 85025; 99284; J1953

== ENCOUNTER → 2023-11-15 11:54 | Outpatient (BNVA) | payer MEDICAID, SELFPAY ==
[2023-08-02 15:57] VITALS: BP 109/63; BMI 24.9
== END ==
PROVIDERS: PCP Family Medicine; Visit Provider Nurse Practitioner
DX: Z79.899 Other long term (current) drug therapy (principal); F43.12 Post-traumatic stress disorder, chronic; F33.1 Major depressive disorder, recurrent, moderate; F17.200 Nicotine dependence, unspecified, uncomplicated
CPT/HCPCS: 80061; 83036

== ENCOUNTER → 2024-08-13 14:23 | Outpatient (BNVA) | payer MEDICAID, SELFPAY ==
[2024-08-10 13:57] VITALS: BP 128/78; BMI 26.9
== END ==
PROVIDERS: PCP Nurse Practitioner Family; Visit Provider Nurse Practitioner Family
DX: M25.512 Pain in left shoulder (principal); M85.812 Other specified disorders of bone density and structure, left shoulder
CPT/HCPCS: 73030

== ENCOUNTER 2024-08-29 11:58 | Outpatient (CLI) | payer MEDICAID, SELFPAY ==
[2024-08-10 13:57] VITALS: BP 128/78; BMI 26.9
--- NOTE | 2024-08-29 12:01 | MR_ITS ---
WS: [id number] MRI LEFT SHOULDER NONCONTRAST TECHNIQUE: Sagittal T2, coronal T1, T2 and proton density imaging. Axial gradient PDE imaging. CLINICAL INFORMATION: M25.512 - Pain in left shoulder COMPARISON: None. FINDINGS: Advanced degenerative arthritis AC joint. Subacromial subdeltoid fluid. Mild downsloping acromion. Gu bacromial spurring. Impingement distal supraspinatus. High-grade tear of the distal supraspinatus joy r the insertion with tendon retraction measuring approximately 1.5 cm. Chronic thinning of the supras pinatus and infraspinatus. Normal teres minor. Tendinopathy with partial intrasubstance tear intra-ar ticular biceps tendon. Subscapularis tendon appears intact. Biceps tendon appears intact within the b icipital groove. Moderate to advanced degenerative narrowing at the glenohumeral articulation with hypertrophic spurri ng. Small joint effusion. Subchondral cystic change involving the glenoid. Degenerative fraying of th e glenoid labrum. MR/MR shoulder LT wo con* [id number] IMPRESSION: 1. Advanced arthritis AC joint with subacromial subdeltoid fluid. Subacromial spurring impinges the distal supraspinatus. 2. High-grade tear of the distal supraspinatus with retraction measuring 1.5 c m. Chronic thinning of the supraspinatus. 3. Tendinopathy with partial intrasubstance tear intra-articular biceps tendon . 4. Advanced degenerative narrowing glenohumeral articulation.
== END 2024-08-29 11:59 | disposition home or self-care (01) ==
LOC: RAD 11:59
PROVIDERS: PCP Nurse Practitioner Family; Visit Provider Nurse Practitioner Family
DX: M13.812 Other specified arthritis, left shoulder (principal); R93.6 Abnormal findings on diagnostic imaging of limbs; M75.102 Unspecified rotator cuff tear or rupture of left shoulder, not specified as traumatic
CPT/HCPCS: 73221

== ENCOUNTER → 2024-09-10 14:45 | Outpatient (BNVA) | payer MEDICAID, SELFPAY ==
[2024-08-10 13:57] VITALS: BP 128/78; BMI 26.9
== END ==
PROVIDERS: PCP Nurse Practitioner Family; Visit Provider Nurse Practitioner
DX: M19.012 Primary osteoarthritis, left shoulder (principal); M25.612 Stiffness of left shoulder, not elsewhere classified; M75.102 Unspecified rotator cuff tear or rupture of left shoulder, not specified as traumatic; M25.812 Other specified joint disorders, left shoulder; M67.922 Unspecified disorder of synovium and tendon, left upper arm
CPT/HCPCS: 36415; 80053; 81001; 85025; 99204

== ENCOUNTER → 2024-11-13 10:51 | Outpatient (BNVA) | payer SELFPAY ==
[2024-08-10 13:57] VITALS: BP 128/78; BMI 26.9
== END ==
PROVIDERS: PCP Nurse Practitioner Family; Visit Provider Nurse Practitioner
DX: Z79.899 Other long term (current) drug therapy (principal)
CPT/HCPCS: 80061; 83036

== ENCOUNTER → 2024-11-19 11:31 | Outpatient (BNVA) | payer MEDICAID, SELFPAY ==
[2024-11-14 15:15] VITALS: BP 140/89
[2024-11-14 15:16] VITALS: BMI 31.9
== END ==
PROVIDERS: PCP Nurse Practitioner Family; Visit Provider Nurse Practitioner
DX: M75.102 Unspecified rotator cuff tear or rupture of left shoulder, not specified as traumatic (principal); M25.812 Other specified joint disorders, left shoulder; M19.012 Primary osteoarthritis, left shoulder; M67.922 Unspecified disorder of synovium and tendon, left upper arm
CPT/HCPCS: 99214

== ENCOUNTER → 2024-12-14 11:38 | Outpatient (BNVA) | payer MEDICAID, SELFPAY ==
[2024-11-14 15:15] VITALS: BP 140/89
[2024-11-14 15:16] VITALS: BMI 31.9
== END ==
PROVIDERS: PCP Nurse Practitioner Family; Visit Provider Nurse Practitioner
DX: Z01.818 Encounter for other preprocedural examination (principal); M19.012 Primary osteoarthritis, left shoulder
CPT/HCPCS: 36415; 80053; 81001; 85025

== ENCOUNTER 2025-01-01 09:18 | Day surgery (SDC) | payer MEDICAID, SELFPAY ==
[2024-11-14 15:15] VITALS: BP 140/89
[2024-11-14 15:16] VITALS: BMI 31.9
[2025-01-01] VITALS (11 sets, daily range): BP systolic 105–140; BP diastolic 52–95; PULSE 85–112; RESP 15–27; TEMP 36.1–36.7; O2SAT 90–99; BMI 31.6
[2025-01-01] MEDS: sodium chloride 0.9% 1,000 ML 30 ML IV (10:13)
[2025-01-01] MEDS: acetaminophen 1,000 MG/100 ML PIGGYBACK 400 MG IV (10:14)
[2025-01-01] MEDS: gabapentin 300 mg Capsule PO (10:19)
[2025-01-01] MEDS: CELEcoxib 200 mg Capsule 400 MG PO (10:19)
--- NOTE | 2025-01-01 10:30 | W.PM.OPSUD ---
Surgery/Procedure H&P Update DATE OF PROCEDURE: January 01, 2025 DATE H&P PERFORMED: 12/14/24 H&P UPDATE INFORMATION: I have reviewed H&P completed within last 30 days, I have examined patient prior to procedure, No changes to prior documentation, H&P is in [facility] EMR on date indicated and Risks and benefits of the procedure reviewed PREOP DIAGNOSIS: Left rotator cuff tear, impingement, AC joint degenerative arthritis PRIMARY INDICATION FOR PROCEDURE: MRI was obtained at [facility] on August 29, 2024. This was read by Dr. Eugenio Mejía. Findings are as follows: 1. Advanced arthritis AC joint with subacromial subdeltoid fluid. Subacromial spurring impinges the distal supraspinatus. 2. High-grade tear of the distal supraspinatus with retraction measuring 1.5 cm. Chronic thinning of the supraspinatus. 3. Tendinopathy with partial intrasubstance tear intra-articular biceps tendon. 4. Advanced degenerative narrowing glenohumeral articulation. PLANNED PROCEDURE: Operation Date: 01/01/25 11:10 Proposed Procedures p Rotator Cuff Repair - Open(Left) - Christiana Lund MD s Acromioplasty(Left) - Christiana Lund MD s Distal Clavicle Resection(Left) - Christiana Lund MD Related Problem List Diagnoses (1) Impingement of left shoulder: (2) Nontraumatic tear of left supraspinatus tendon: (3) Primary osteoarthritis, left shoulder: (4) Tendinopathy of left biceps tendon:
--- NOTE | 2025-01-01 10:35 | SUR.PREOP ---
1030-time out was completed in OPS at bedside with Dr Beth. Interscalene block was administered to left shoulder using 20ml ropivicaine and 4mg decadron
--- NOTE | 2025-01-01 10:38 | ANES.PREANE2 ---
Pre-Anesthetic Assessment Height/Weight: Height 1.63 m Weight 83.461 kg Temp Pulse Resp BP Pulse Ox O2 Del Method 98.0 F 92 16 140/95 99 Room Air 01/01/25 09:40 01/01/25 09:40 01/01/25 09:40 01/01/25 09:40 01/01/25 09:40 01/01/25 09:42 Operation Date: 01/01/25 11:10 Proposed Procedures p Rotator Cuff Repair - Open(Left) - Christiana Lund MD s Acromioplasty(Left) - Christiana Lund MD s Distal Clavicle Resection(Left) - Christiana Lund MD Familial anesthetic complications: None Was Beta Sandy taken within 24 hours: N/A Was Clonidine taken within 24 hours: N/A Last intake: Intake Last Liquid Date 01/01/25 Last Liquid Time 01:00 Last Solid Date 01/01/25 Last Solid Time 01:00 Social No alcohol and No tobacco Exam alert, oriented x 3, clear to auscultation bilaterally and regular rate & rhythm Airway Mallampati: Class II Pulmonary Chronic Obstructive Pulmonary Disease CV/HEM Hypertension Metabolic Hyperlipidemia Anesthetic Plan ASA status: 3 Anesthesia: General and Regional (specify below) Risk of > 500 ml blood loss (7ml/kg in children): No Medications/Allergies Home Medications ?Medication ?Instructions ?Recorded ?Confirmed ?Last Taken ?Type clonazepam 1 mg tablet 1 mg PO TID #90 tabs 10/04/24 01/01/25 12/31/24 Rx aripiprazole 2 mg tablet (Abilify) 2 mg PO DAILY 10/31/24 01/01/25 12/31/24 History sertraline 100 mg tablet (Zoloft) 200 mg PO DAILY 10/31/24 01/01/25 12/31/24 History atorvastatin 20 mg tablet 20 mg PO DAILY #30 tabs 11/15/24 01/01/25 12/31/24 Rx losartan 50 mg tablet (Cozaar) 50 mg PO DAILY #30 tabs 11/15/24 01/01/25 12/31/24 Rx mometasone-formoterol HFA 100 See Rx Instructions .Route 11/16/24 01/01/25 12/31/24 Rx mcg-5 mcg/actuation aerosol .COMPLEX #13 grams inhaler (Dulera) cetirizine 10 mg tablet 10 mg PO DAILY PRN allergy 12/14/24 12/27/24 Unknown Rx symptoms #30 tabs tizanidine 4 mg tablet 4 mg PO TID PRN muscle relaxer #60 12/14/24 01/01/25 12/31/24 Rx tabs Allergies Allergy/AdvReac Type Severity Reaction Status Date / Time aspirin Allergy Unknown Verified 01/01/25 09:33 Current Medications Generic Name Dose Route Start Last Admin Trade Name Freq PRN Reason Stop Dose Admin Sodium Chloride 1,000 mls @ 30 mls/hr 01/01/25 09:30 01/01/25 10:13 Sodium Chloride 0.9% IV 01/02/25 09:29 30 mls/hr .Q24H CASEY Administration PFSH Anesthesia Medical History COPD (chronic obstructive pulmonary disease) Chronic neck pain Chronic low back pain Hyperlipidemia Hypertension On combination antipsychotic drug therapy Tobacco use disorder Psychiatric care Degenerative cervical disc Disappearance and of family member Major depressive disorder, recurrent, moderate Post-traumatic stress disorder, chronic Surgical History History of tonsillectomy Status post open reduction and internal fixation (ORIF) of fracture open reduction internal fixation a four-part intra-articular fracture comminuted right distal radius fracture with volar plate and screws and percutaneous pins DOS: 07-07-[address] Shook Family History Father Diabetes CAD (coronary artery disease) Mother Aneurysm Sister Diabetes Other Hypertension Stroke Denies family history of Dementia Cancer Social History Smoking and tobacco/nicotine status: current every day tobacco/nicotine user cigarettes Packs smoked per day: 0.5 Years cigarettes smoked: 45 Alcohol intake: never Substance/Drug Use: never Caregiver/support person: Yes Lives independently: Yes Household members: other Details: exhusband Housing: House Marital status: Number of children: 2 Number of grandchildren: 3 service: No Current occupational status: disabled Pets and animals: Yes Sexually active: No Do you think of yourself as: Straight/Heterosexual Current gender identity: Female Special isauro needs: No Agree to transfusion: Yes Female Reproductive History Para: 2 Spontaneous abortions: Yes Anesthesia Procedures Nerve Block Nerve Block 1: Main Anesthesia: general anesthesia Time Out Performed: Yes Consent: requested by attending/covering physician, from patient, from other, risks and benefits reviewed and patient agrees to proceed Nerve block location: interscalene (L) Anesthesia monitors applied: pulse oximetry, EKG, BP cuff and oxygen Nerve block position: supine Anesthetic Used: ropivicaine 0.5% (20 ml) and with decadron (4 mg) Ultrasound used to: recognize landmarks, visualize and ID brachial plexus, in supraclavicular region and visualize and ID interscalene groove Nerve Stimulator Used?: No Interscalene/Femoral BLK: 2 stimuplex 22 g needle used for position and inplane approach, visualize local anesthetic spread and no vascular puncture identified Injection: neg aspiration of heme Patient Tolerated Procedure: well Complications: none
[2025-01-01] MEDS: ceFAZolin 2,000 mg SDV 2000 MG IVP (11:48)
[2025-01-01] MEDS: ceFAZolin 1,000 mg SDV 1000 MG IRRIGATION (12:04)
--- NOTE | 2025-01-01 13:10 | PM.OP ---
Operative Report Date of procedure: January 01, 2025 Pre-op diagnosis: Left shoulder rotator cuff tear with impingement and acromioclavicular osteoarthritis Post-op diagnosis: Left shoulder rotator cuff tear with impingement, acromioclavicular osteoarthritis, and significant bursitis Post-op findings: Left shoulder very thickened left subacromial bursa with longitudinal tear of the supraspinatus tendon to mid humeral head, osteoarthritic change within the glenohumeral joint, impingement, and significant osteoarthritis of the acromioclavicular joint Procedure done: Left shoulder rotator cuff repair, primary, with acromioplasty, distal clavicle resection, and bursectomy Implants: None Specimens removed/disposition: Bursa, disposed of Pathology: None Surgeon: Christiana Lund MD Traffic Engineering Director: Payton Jerry, nurse practitioner who services were required for positioning, retraction, closure, and repair of the rotator cuff Anesthesia: General (Intubated with left interscalene block, ASA 3) Estimated blood loss (mL): 10 IV fluids (mL): 800 Urine output (mL): 0 (No Brody) Complications: None Findings: Impingement with distal clavicle degenerative osteoarthritis and longitudinal rotator cuff tear Condition: stable Disposition: PACU (Then return to same-day surgery for discharge to home) Brief History: This 59-year-old woman presented to the clinic complaining of left shoulder pain ongoing for greater than 6 months. The patient's imaging demonstrated impingement along with acromioclavicular joint osteoarthritis, glenohumeral osteoarthritis, and rotator cuff tear. After discussion with the patient, she wished to proceed with operative intervention. Risks and complications were discussed with her. Consents were signed and questions were answered. She had further opportunity the morning of surgery to further discuss the surgery and have questions answered. Procedure: The patient was brought to the operating theater and underwent general intubated anesthesia, ASA 3. The patient was placed in a beachchair position and subsequently the left upper extremity was prepped and draped in the usual fashion utilizing DuraPrep. The arm was draped free. A surgical pause was performed prior to commencement of the surgical procedure. At the time of the surgical pause, we confirmed the site and side of surgery as well as administration of appropriate preoperative antibiotics Ancef 2 g which was well-tolerated. MRI was also reviewed at that time. Following the surgical pause, an incision was made at approximately the level of the acromioclavicular joint extending across the anterolateral corner of the acromion and distally as necessary. Care was taken to avoid injury to the axillary nerve by limiting the distal extent of the incision. Dissection continued through skin and soft tissues using a scalpel. Hemostasis was obtained using electrocautery. Soft tissues were elevated off the acromion and the acromioclavicular joint. Subacromial space was identified and soft tissues were retracted. Bursectomy was accomplished to allow evaluation of the rotator cuff. An acromioplasty was then accomplished using a combination of a saw and a power rasp. With this, we were able to remove compression caused by the acromion. The rotator cuff was then evaluated to look for tears. There was noted to be a large tear involving the supraspinatus tendon which was longitudinal in nature. The remainder of the rotator cuff was evaluated, and no further tears were visible. Insertion of the tendon was intact. Primary repair was accomplished after the edges were freshened utilizing 0 Ethibond. The shoulder was then placed through full range of motion and reevaluated for any further evidence of tear. Finding none, attention was directed to the acromioclavicular joint. The acromioclavicular joint was exposed. A saw was then used to resect the distal clavicle without difficulty. The undersurface of the clavicle was palpated and was slightly further debrided. A power rasp was used to further smooth the area. When this was felt to be adequately resected, the wound was irrigated. At this point, attention was directed to closure. The wound was irrigated and closure was accomplished with 0 Vicryl in the capsular tissues overlying the acromioclavicular joint area as well as over the acromion and down into the deltoid muscle. 3-0 Monocryl was used to close the subcutaneous tissues followed by 4-0 Monocryl subcuticular closure. This was followed by Dermabond, Steri-Strips, and OpSite. The patient was placed in a sling shot style sling and was returned to the recovery room in satisfactory condition. The patient will be discharged to home to follow-up in the office as scheduled. There were no complications and no specimens. Related Problem List Diagnoses (1) Nontraumatic tear of left supraspinatus tendon: (2) Impingement of left shoulder: (3) Tendinopathy of left biceps tendon: (4) Bursitis of shoulder, left: (5) Primary osteoarthritis, left shoulder:
--- NOTE | 2025-01-01 14:40 | ANE.PACU2 ---
Inpatient post-anesthesia follow up: Airway intact: Yes Vital signs: Temperature 98.0 F Pulse Rate 85 Respiratory Rate 17 Blood Pressure 125/81 Pulse Oximetry 95 Oxygen Delivery Me thod Nasal Cannula Oxygen Flow Rate 1 Fraction of Inspir ed Oxygen Hydration adequate: Yes Nausea and vomiting: No Pain level: 1 Mental status: Baseline
== END 2025-01-01 14:42 | disposition home or self-care (01) ==
PROVIDERS: PCP Family Medicine; Visit Provider Specialist
PROC: (CPT 23412; principal; 2025-01-01 11:10)
PROC: (CPT 23130; 2025-01-01 11:10)
PROC: (CPT 23120; 2025-01-01 11:10)
DX: M75.102 Unspecified rotator cuff tear or rupture of left shoulder, not specified as traumatic (principal); M75.42 Impingement syndrome of left shoulder; M19.012 Primary osteoarthritis, left shoulder; M75.52 Bursitis of left shoulder; I10 Essential (primary) hypertension; J44.9 Chronic obstructive pulmonary disease, unspecified; E78.5 Hyperlipidemia, unspecified; F17.210 Nicotine dependence, cigarettes, uncomplicated; F43.10 Post-traumatic stress disorder, unspecified
CPT/HCPCS: 23412; 23120; 23130; C1713; J0131; J0330; J0690; J1100; J2250; J2405; J2704; J2795; J3010; J7030; J9999

== ENCOUNTER → 2025-01-23 13:42 | Outpatient (BNVA) | payer MEDICAID, SELFPAY ==
[2024-11-14 15:15] VITALS: BP 140/89
[2024-11-14 15:16] VITALS: BMI 31.9
== END ==
PROVIDERS: PCP Family Medicine; Visit Provider Specialist
DX: Z98.890 Other specified postprocedural states (principal)
CPT/HCPCS: 99024

== ENCOUNTER → 2025-05-27 14:38 | Outpatient (BNVA) | payer BC, MEDICAID, SELFPAY ==
[2024-11-14 15:15] VITALS: BP 140/89
[2024-11-14 15:16] VITALS: BMI 31.9
== END ==
PROVIDERS: PCP Family Medicine; Visit Provider Nurse Practitioner
DX: M75.52 Bursitis of left shoulder (principal); M75.102 Unspecified rotator cuff tear or rupture of left shoulder, not specified as traumatic; M67.911 Unspecified disorder of synovium and tendon, right shoulder; Z47.89 Encounter for other orthopedic aftercare
CPT/HCPCS: 73030